=== PATIENT | female | born 1955 | race Asian ===

== ENCOUNTER → 2024-01-01 16:40 | Outpatient (REF) | payer BC, SELFPAY | LOC: WDC 16:40 | PROVIDERS: ATTENDING PHYSICIAN Family Medicine | DX: Z12.31 Encounter for screening mammogram for malignant neoplasm of breast (principal) | CPT/HCPCS: 77063; 77067 ==

== ENCOUNTER 2024-07-01 19:48 | Emergency (ER) | payer BC, SELFPAY ==
[2024-07-01 19:55] VITALS: BP 144/78
[2024-07-01 20:22] LABS: % Basophils 0.4 % (0-2); % Eosinophils 0.4 % (0-6); % Immature Granulocytes 0.5 % (0-0.5); % Monocytes 5.1 % (1.7-9.3); % Neutrophils 81.6 % (42.2-75.2); Absolute Basophils 0.1 10^3/uL (0-0.2); Absolute Eosinophils 0.1 10^3/uL (0-0.7); Absolute Immature Granulocytes 0.1 10^3/uL (0-0.05); Absolute Lymphocytes 1.9 10^3/uL (1.2-3.4); Absolute Monocytes 0.8 10^3/uL (0.1-0.6); Absolute Neutrophils 12.8 10^3/uL (1.4-6.5); Hematocrit 36.6 % (37.0-47.0); Hemoglobin 13.3 g/dL (12.0-16.0); Mean Corp Hgb Conc. 36.3 g/dL (33.0-37.0); Mean Corpuscular Hgb 29.4 pg (27.0-31.0); Mean Platelet Volume 8.3 fL (7.4-10.4); Nucleated Red Blood Cells % 0 %; Platelet Count 337 10^3/uL (130-400); Red Blood Cell Count 4.52 10^6/uL (4.20-5.40); Red Cell Dist. Width 12.9 % (11.5-14.5); White Blood Cell Count 15.7 10^3/uL (4.8-10.8)
[2024-07-01 20:47] LABS: ALT (SGPT) 47 U/L (0-35); AST (SGOT) 55 U/L (14-36); Albumin 5.1 g/dl (3.5-5.0); Alkaline Phosphatase 80 U/L (38-126); Blood Urea Nitrogen 10 mg/dl (7-17); Calcium 10.1 mg/dl (8.4-10.2); Carbon Dioxide 28 mmol/L (22-30); Chloride 87 mmol/L (98-107); Glucose 180 mg/dl (70-99); Potassium 3.5 mmol/L (3.5-5.1); Sodium 128 mmol/L (135-145); Total Bilirubin 0.6 mg/dl (0.2-1.3); eGFR > 60.00
--- NOTE | 2024-07-01 20:52 | ED.GENMED ---
History of Present Illness
General
Chief Complaint: Abdominal Pain
Time Seen by Provider: 07/01/24 20:51
History of Present Illness
History of Present Illness:
TIME OF INITIAL ENCOUNTER: 8:55 PM
HPI: The patient presents due to mid/lower abdominal pain and went to urgent care where she was found to have an elevated white blood cell count. She has no nausea, vomiting, or diarrhea. She has no urinary symptoms. She is a diabetic. Lab work
in urgent care also showed low sodium and low potassium.
EXAM:
GENERAL: Well appearing in no distress
HEENT: Moist oral mucosa
CARDIOVASCULAR: No murmurs, normal heart rate, regular rhythm, No chest wall tenderness
PULMONARY: No respiratory distress, breath sounds are clear and equal
ABDOMEN: Slightly distended abdomen with rather significant lower abdominal tenderness
NEUROLOGIC: Excellent strength all extremities, no coordination deficits
PSYCHIATRIC: Appropriate mental status, normal insight and judgement
EXTREMITIES: Nontender, no edema, moves all extremities equally
SKIN: No rash, no lesions
NUMBER AND COMPLEXITY OF PROBLEMS ADDRESSED AT THE ENCOUNTER
� Chronic conditions affecting care: Diabetes, high blood pressure, hyperlipidemia, hypothyroidism
� Acute Exacerbation and/or Progression of Chronic Illness: This is an acute problem
� Differential Diagnosis includes: Appendicitis, diverticulitis, UTI not noted on urinalysis from urgent care
AMOUNT AND/OR COMPLEXITY OF DATA TO BE REVIEWED AND ANALYZED
� I performed an independent evaluation of and my interpretation is:
EKG:
CT: I personally reviewed CT imaging and see distended bladder and large amount stool in the rectum
X-rays:
Laboratory Studies: White count 15.7, hemoglobin 13.3, sodium 128, bicarb 28, creatinine 0.4, minimal transaminase elevation with normal total bili
Other:
� Review of other/old records: The patient was seen here in [place] 19 with hypertension and had a colonoscopy in polyps removed
� Clinical information was obtained by an independent historian: I spoke to at bedside
� Prescriptions/Medications Considered but not given:
� Further testing considered but not performed:
RISK OF COMPLICATIONS AND/OR MORBIDITY OR MORTALITY OF PATIENT MANAGEMENT
� Social determinants of health affecting care: Lives at home
� Discussion with other providers:
� Escalation of care including admission/observation vs risk of discharge considered: Other than two colonic polypectomies and a , she has no significant abdominal pelvic history. She has a elevated white count and
rather significant tenderness�CT imaging obtained.
ANY OTHER UPDATES:
9 PM: Declines analgesia
10:30 PM: X-ray personally viewed CT imaging, I attempted manual disimpaction however there was not much stool that I could remove, will attempt enema. Bladder scan was obtained and showed greater than 550 mL. Will attempt to remove the stool
first and then likely may need Gilbert catheter.
12 AM: The patient now feels markedly improved as she was able to void without need for Gilbert catheter
Past History
Past History
ED Past Medical History: HTN, Hypercholesterolemia, NIDDM, Hypothyroidism and Other (Rheumatoid arthritis)
ED Past Surgical History: Gynecological and Orthopedic
Social History
Tobacco: Non-smoker
Phy Exam
Physical Exam
Physical Exam:
See HPI
Course
Orders/Labs/Results
Orders:
Orders
07/01/24 20:10
CMP [Comprehensive Metabolic Panel] Urgent
Complete Blood Count/With Diff Urgent
07/01/24 21:01
CT Abd/pelvis W Iv Cont Urgent
Comment:
Reason For Exam: severe lower tender; leukocytosis
07/01/24 22:31
Bladder Scan- Treatment ONCE
Enema- Treatment ONCE
Type: Soap Suds
Abnormal Lab Results
07/01/24
20:10
WBC 15.7 H 10^3/uL
(4.8-10.8)
Hct 36.6 L %
(37.0-47.0)
Abs Immat Gran (auto) 0.1 H 10^3/uL
(0-0.05)
Absolute Neuts (auto) 12.8 H 10^3/uL
(1.4-6.5)
Absolute Monos (auto) 0.8 H 10^3/uL
(0.1-0.6)
Neutrophils % 81.6 H %
(42.2-75.2)
Lymphocytes % 12.0 L %
(20.5-51.1)
Sodium 128 L mmol/L
(135-145)
Chloride 87 L mmol/L
(98-107)
Creatinine 0.4 L mg/dL
(0.6-1.0)
Glucose 180 H mg/dl
(70-99)
AST 55 H U/L
(14-36)
ALT 47 H U/L
(0-35)
Albumin 5.1 H g/dl
(3.5-5.0)
07/01/24 20:10
07/01/24 20:10
Vital Signs
Initial and Last Documented VS:
Initial Vital Signs
Temp Pulse Resp BP Pulse Ox
98.1 F 92 18 144/78 95
07/01/24 19:55 07/01/24 19:55 07/01/24 19:55 07/01/24 19:55 07/01/24 19:55
Last Documented Vital Signs
Temp Pulse Resp BP Pulse Ox
98.1 F 92 18 137/75 95
07/01/24 19:55 07/01/24 19:55 07/01/24 19:55 07/01/24 22:02 07/01/24 22:20
*Critical Care Note
Total Time (30-74mins, 75-104mins- exclusive of procedures): Not Applicable
ED Attending Note
-
Portions of this chart may have been created with voice recognition software.� Occasional wrong word or��sound alike� substitutions may have occurred due to the inherent limitations of voice recognition software.
Discharge Plan
Departure
Patient Disposition: Home (Routine Discharge)
Date of Disposition: 07/02/24
Time of Disposition: 00:10
Patient with high blood pressure during this ER visit?: Yes
Discharge Problem:
Acute urinary retention
Instructions: Urinary retention, Abdominal Pain
Prescriptions:
No Action
metformin 500 MG tablet
500 mg PO BID
cetirizine 10 MG tablet
10 mg PO DAILY
valsartan 80 MG tablet
80 mg PO DAILY
aspirin [Aspir-Low] 81 MG tablet,delayed release (DR/EC)
81 mg PO DAILY
levothyroxine 88 MCG tablet
88 mcg PO DAILY
methotrexate sodium 2.5 MG tablet
12.5 mg PO WEEKLY
simvastatin 20 MG tablet
20 mg PO QPM
ferrous sulfate [iron] 325 MG tablet
65 mg PO DAILY
folic acid 1 MG tablet
1 mg PO DAILY
hydrochlorothiazide 25 MG tablet
25 mg PO DAILY
hydroxychloroquine 200 MG tablet
200 mg PO BID
escitalopram oxalate 10 MG tablet
10 mg PO DAILY
baricitinib [Olumiant] 2 MG tablet
2 mg PO DAILY
Referrals:
Saurabh Ford MD [Family Provider] -
Activity Restrictions/Additional Instructions:
The CAT scan showed a large amount of stool in the rectum. We did give you an enema which did help. You did have urinary retention with greater than 500 mL of urine but fortunately you are able to void prior to discharge. I recommend trying to
take something like MiraLAX to help keep the stool loose so he can have good bowel movements. 6
Interventions
Interventions:
*Risk Screen - Suicide Last Done: 07/01/24 20:56
*General Assessment Last Done: 07/01/24 20:56
*Neglect/Abuse Screening Last Done: 07/01/24 20:56
*ED COVID-19 Vaccine History Last Done: 07/01/24 20:56
HI-Ygaqbr-Ugllcxebmp Assessment Last Done: 07/01/24 21:14
Discharge Date and Time
Print Language: LITHUANIAN
[2024-07-01 20:56] VITALS: BP 135/74
[2024-07-01 21:00] VITALS: BP 112/76
[2024-07-01 22:02] VITALS: BP 137/75
[2024-07-02 00:12] VITALS: BP 136/78
== END 2024-07-02 00:16 | disposition home or self-care (01) ==
LOC: EMR 19:48
PROVIDERS: EMERGENCY PHYSICIAN Emergency Medicine; FAMILY PHYSICIAN Family Medicine
DX: R33.9 Retention of urine, unspecified (principal); R10.30 Lower abdominal pain, unspecified; E11.9 Type 2 diabetes mellitus without complications; E03.9 Hypothyroidism, unspecified; I10 Essential (primary) hypertension; E78.00 Pure hypercholesterolemia, unspecified; M06.9 Rheumatoid arthritis, unspecified
CPT/HCPCS: 99284; 74177; 80053; 85025; Q9967

== ENCOUNTER → 2025-03-03 08:40 | Outpatient (REF) | payer BC, SELFPAY | LOC: HWRAD 08:40 | PROVIDERS: ATTENDING PHYSICIAN Nurse Practitioner; FAMILY PHYSICIAN Family Medicine | DX: M05.79 Rheumatoid arthritis with rheumatoid factor of multiple sites without organ or systems involvement (principal) | CPT/HCPCS: 73120; 73620 ==